=== PATIENT | female | born 1945 | race Caucasian/White ===

== ENCOUNTER → 2017-06-25 | Outpatient (CLI) | payer OTHER ==
--- NOTE | 2017-06-25 15:19 | MG ---
HISTORY: SCREENING Comparison: Previous mammogram dated 04/24/2016 FINDINGS: Bilateral CC and MLO projections of the right and left breast were obtained. Scattered fibroglandula r tissue is seen to be present. A partially calcified fibroadenoma is again identified in the upper outer aspect of the left breast. No other sign of dominant mass. No architectural distortion or suspi cious microcalcifications are seen on either side.. No skin thickening or nipple retraction is appre ciated. No pathological lymphadenopathy can be identified. Benign-appearing calcifications scattere d throughout the right and left breasts are observed. IMPRESSION: NO RADIOGRAPHIC EVIDENCE OF MALIGNANCY. ACR CATEGORY: 2 - benign findings. FOLLOW-UP EXAM 1 YEAR. Diagnostic CAD was utilized and reviewed. * 0 (ZERO) - ASSESSMENT INCOMPLETE; ADDITIONAL IMAGING IS NEEDED. * 1/1 (ONE) - NEGATIVE. * 2/II (TWO) - BENIGN FINDINGS. * 3/III (THREE) - PROBABLY BENIGN FINDING; SHORT INTERVAL FOLLOW-UP SUGGESTED. * 4/IV (FOUR) - SUSPICIOUS ABNORMALITY; BIOPSY SHOULD BE CONSIDERED. * 5/V - HIGHLY SUSPICIOUS OF MALIGNANCY; BIOPSY SHOULD BE PERFORMED. A NEGATIVE X-RAY REPORT SHOULD NOT DELAY BIOPSY IF A DOMINANT OR CLINICALLY SUSPICIOUS MASS IS PRESENT; 4 TO 8 PERCENT OF CANCERS ARE NOT IDENTIFIED BY X-RAY. A NEGA TIVE REPORT MAY REINFORCE THE CLINICAL IMPRESSION. ADENOSIS AND DENSE BREASTS MAY OBSCURE AN UNDERLYING NEOPLASM. Reported By:
== END ==
LOC: RAD 10:12
PROVIDERS: ATTEND Internal Medicine
DX: Z12.31 Encounter for screening mammogram for malignant neoplasm of breast (principal)
CPT/HCPCS: 77067

== ENCOUNTER 2018-12-09 08:52 | Observation (INO) ==
[2018-12-09] MEDS ORDERED: DILAUDID INJ IVP PRN (09:43)
[2018-12-09 12:49] VITALS: BMI 26.6
[2018-12-09 12:51] LABS: BASOPHILS # (AUTO) 0.1 X10^3/uL (0.0-0.1); BASOPHILS % (AUTO) 1.1 % (0.2-1.0); EOSINOPHILS % (AUTO) 0.6 % (0.9-2.9); HEMATOCRIT 36.5 % (36.0-47.0); HEMOGLOBIN 11.8 g/dL (12.0-16.0); LYMPHOCYTES # (AUTO) 1.1 X10^3/uL (1.3-2.9); LYMPHOCYTES % (AUTO) 21.9 % (21.0-51.0); MEAN CORPUSCULAR HEMOGLOBIN 24.8 pg (27.0-34.0); MEAN CORPUSCULAR HGB CONC 32.5 g/dL (33.0-35.0); MEAN CORPUSCULAR VOLUME 76.4 fL (80.0-100.0); MEAN PLATELET VOLUME 7.2 fL (7.4-11.0); MONOCYTES # (AUTO) 0.5 x10^3/uL (0.3-0.8); MONOCYTES % (AUTO) 9.2 % (0.0-13.0); NEUTROPHILS # (AUTO) 3.3 x10^3/uL (2.2-4.8); NEUTROPHILS % (AUTO) 67.2 % (42.0-75.0); PLATELET COUNT 329 X10^3/uL (150.0-450.0); RED BLOOD COUNT 4.77 X10^6/uL (3.5-5.4); RED CELL DISTRIBUTION WIDTH 16.2 % (11.6-16.5); WHITE BLOOD COUNT 4.9 X10^3/uL (3.6-10.0)
[2018-12-09 12:58] LABS: ALANINE AMINOTRANSFERASE 16 Units/L (12-78); ALBUMIN 4.1 g/dL (3.4-5.0); ALKALINE PHOSPHATASE 70 Units/L (46-116); ASPARTATE AMINO TRANSFERASE 18 Units/L (15-37); BLOOD UREA NITROGEN 9 mg/dL (7-18); CALCIUM 9.1 mg/dL (8.5-10.1); CARBON DIOXIDE 25.7 mmol/L (21-32); CHLORIDE 98 mmol/L (98-107); COR NA(FOR HYPERGLY) 136 mmol/L (136-145); CREATININE 0.82 mg/dL (0.55-1.02); SODIUM 135 mmol/L (136-145); TOTAL PROTEIN 8.4 g/dL (6.4-8.2); eGFR NON BLACK RACES > 60 (>60)
[2018-12-09 13:21] LABS: PLATELET MORPHOLOGY COMMENT NORMAL (NORMAL)
[2018-12-09 13:32] LABS: ERYTHROCYTE SEDIMENTATION RATE 23 MM/HOUR (0-20)
[2018-12-09] MEDS: TORADOL 15 MG VIAL IVP SCH ×3 (13:55→22:05)
[2018-12-09] MEDS: NS 1000 ML 1,000 ML IV SCH (14:48)
--- NOTE | 2018-12-09 16:22 | DR.UPDATE ---
H&P Update History and Physical Update: History and Physical reviewed and patient examined. Changes noted: Yes with the following: PRESENTED TO THE OFFICE FOR COMPLAINTS OF SEVERE LOWER BACK PAIN. SHE DESCRIBES PAIN BURNING DOWN TO BILATERAL LEGS. SHE ALSO REPORTS LOWER ABDOMINAL PAIN. PATIENT REPORTS THAT PAIN IS CONSTANT AND WORSENING. WE ADMITTED PATIENT FOR FURTHER EVALUATION AND TREATMENT OF INTRACTABLE BACK PAIN AND ABDOMINAL PAIN. ON ADMISSION, LABS WERE OBTAINED. ABNORMAL LAB VALUES INCLUDE THE FOLLOWING: HGB 11.8, SODIUM 135, GLUCOSE 131, TOTAL PROTEIN 8.4. WE WILL OBTAIN A URINALYSIS, MRI OF THE LUMBAR SPINE, AND AN ABDOMEN/PELVIS CT WITH CONTRAST. WE WILL START NORMAL SALINE AT 50 ML/HR, DILAUDID 1MG IV Q4H PRN PAIN, TORADOL 15MG IV Q6H JAD, AND WILL RESUME HER HOME MEDICATIONS. OTHERWISE, WE PLAN TO FOLLOW UP WITH AM LABS AND CONTINUE TO MONITOR. Prescription drug monitoring program results: PDMP was not reviewed
[2018-12-09] MEDS ORDERED: NS 100 ML IV 100 ML IV ONE (18:15)
[2018-12-09 20:53] LABS: BILIRUBIN,URINE NEGATIVE (NEGATIVE); BLOOD/HEMOGLOBIN,URINE 1+ (NEGATIVE); GLUCOSE, URINE NEGATIVE (NEGATIVE); KETONES,URINE NEGATIVE (NEGATIVE); LEUKOCYTE ESTERASE ,URINE 3+ (NEGATIVE); NITRITES,URINE NEGATIVE (NEGATIVE); PROTEIN,URINE NEGATIVE (NEGATIVE); UROBILINOGEN,URINE NORMAL (NORMAL)
[2018-12-09] MEDS ORDERED: PATIENT'S HOME MEDICATION PO SCH ×6 (21:00)
[2018-12-09] MEDS ORDERED: REGLAN TAB 10 MG PO SCH (21:00)
[2018-12-09] MEDS ORDERED: NORVASC TAB 10 MG PO SCH (21:00)
[2018-12-09] MEDS ORDERED: PLETAL PO SCH (21:00)
[2018-12-09] MEDS ORDERED: ZyrTEC TAB 10 MG PO SCH (21:00)
[2018-12-09] MEDS ORDERED: CRESTOR TAB 10 MG PO SCH (21:00)
[2018-12-09] MEDS ORDERED: GLUCOPHAGE PO SCH (21:00)
[2018-12-09] MEDS ORDERED: TOPROL XL PO SCH (21:00)
[2018-12-09] MEDS ORDERED: NEURONTIN CAP 300 MG PO SCH (21:00)
[2018-12-09 21:01] LABS: APPEARANCE,URINE HAZY (CLEAR); COLOR,URINE YELLOW (YELLOW)
[2018-12-09 21:02] LABS: BACTERIA,URINE 2+ /HPF (NEGATIVE); RBC,URINE 0-2 /HPF (0-3); SQUAMOUS EPITHELIAL CELL,UR RARE /HPF (NEGATIVE)
[2018-12-09] MEDS: ROCEPHIN VIAL 1 GRAM 1 G in NS 100 ML IV + SPIKE MINIBAG* 100 ML IV SCH (21:56)
[2018-12-09] MEDS: PATIENT'S HOME MEDICATION PO SCH (22:04)
[2018-12-09] MEDS: HumuLIN R SUBCUT PRN (22:16)
[2018-12-10] MEDS: HumuLIN R SUBCUT PRN (01:58)
[2018-12-10] MEDS: NS 1000 ML 1,000 ML IV SCH (02:04)
--- NOTE | 2018-12-10 05:13 | CT ---
CT abdomen and pelvis with contrast Indication: Abdominal pain Technique: Helical images through the abdomen and pelvis after IV and oral contrast per protocol. Coronal and sagittal reformats provided. Findings: Limited images through the lower chest show no acute abnormality. Coronary artery calcifications noted. Review of bone windows shows spine and pelvis DJD. Abdomen: The liver, gallbladder, spleen, atrophic pancreas and adrenal glands show no acute abnormality. The stomach and small bowel are normal. There is colonic diverticulosis without acute inflammation. No acute colonic abnormalities seen. Vascular calcifications noted. The right kidney is normal without hydroureteronephrosis. Left kidney shows interpolar cyst. Exophytic left lower pole intermediate density is indeterminate. Pelvis: The urinary bladder and rectum are normal. Uterus and adnexa show no acute abnormality. Impression: 1. No acute abnormality to explain the patient's pain 2. Indeterminate exophytic left lower pole hypodensity. Nonemergent ultrasound follow-up recommended. 3. Spine DJD, vascular plaque and other findings as above. Noninflamed colonic diverticula Reported By:
[2018-12-10 05:19] LABS: BASOPHILS % (AUTO) 1.2 % (0.2-1.0); EOSINOPHILS % (AUTO) 1.1 % (0.9-2.9); HEMATOCRIT 32.1 % (36.0-47.0); HEMOGLOBIN 10.5 g/dL (12.0-16.0); LYMPHOCYTES % (AUTO) 24.7 % (21.0-51.0); MEAN CORPUSCULAR HEMOGLOBIN 24.7 pg (27.0-34.0); MEAN CORPUSCULAR HGB CONC 32.5 g/dL (33.0-35.0); MEAN CORPUSCULAR VOLUME 75.9 fL (80.0-100.0); MEAN PLATELET VOLUME 7.3 fL (7.4-11.0); MONOCYTES # (AUTO) 0.6 x10^3/uL (0.3-0.8); MONOCYTES % (AUTO) 13.7 % (0.0-13.0); NEUTROPHILS # (AUTO) 2.4 x10^3/uL (2.2-4.8); NEUTROPHILS % (AUTO) 59.3 % (42.0-75.0); PLATELET COUNT 270 X10^3/uL (150.0-450.0); RED BLOOD COUNT 4.23 X10^6/uL (3.5-5.4); RED CELL DISTRIBUTION WIDTH 16.1 % (11.6-16.5)
[2018-12-10 05:38] LABS: ALANINE AMINOTRANSFERASE 14 Units/L (12-78); ALBUMIN 3.2 g/dL (3.4-5.0); ALKALINE PHOSPHATASE 54 Units/L (46-116); ASPARTATE AMINO TRANSFERASE 14 Units/L (15-37); BLOOD UREA NITROGEN 10 mg/dL (7-18); CALCIUM 8.1 mg/dL (8.5-10.1); CARBON DIOXIDE 25.1 mmol/L (21-32); CHLORIDE 102 mmol/L (98-107); COR CA(FOR HYPOALB) 8.7 mg/dL (8.5-10.1); CREATININE 0.62 mg/dL (0.55-1.02); SODIUM 137 mmol/L (136-145); TOTAL PROTEIN 6.9 g/dL (6.4-8.2); eGFR NON BLACK RACES > 60 (>60)
[2018-12-10 05:47] LABS: PLATELET MORPHOLOGY COMMENT NORMAL (NORMAL)
[2018-12-10] MEDS: TORADOL 15 MG VIAL IVP SCH ×2 (06:02→11:12)
[2018-12-10] MEDS ORDERED: K-RIDER 10 MEQ/NS 100 ML 10 MEQ/100 ML BAG IV PRN (06:13)
[2018-12-10] MEDS ORDERED: KLOR-CON PO PRN (06:13)
[2018-12-10] MEDS ORDERED: MICRO K EXTEN CAP 10 MEQ PO PRN (06:13)
[2018-12-10] MEDS ORDERED: K-DUR TAB 20 MEQ PO PRN (06:13)
[2018-12-10] MEDS ORDERED: POTASSIUM CHLORIDE LIQ 20 MEQ UDC PO PRN (06:13)
[2018-12-10] MEDS ORDERED: POTASSIUM CHL 40 MEQ/NS 0.45% 500 ML IV PRN (06:13)
[2018-12-10] MEDS ORDERED: POTASSIUM CHL 60 MEQ/NS 0.45% 500 ML IV PRN (06:13)
[2018-12-10] MEDS ORDERED: MAGNESIUM SULFATE 1 GRAM/100 mL PREMIX 1 GM/100 ML BAG IV PRN (06:13)
[2018-12-10] MEDS ORDERED: PriLOSEC PO SCH (09:00)
[2018-12-10] MEDS ORDERED: FOSINOPRIL PO SCH (09:00)
[2018-12-10] MEDS ORDERED: PLAVIX PO SCH (09:00)
[2018-12-10] MEDS ORDERED: SYNTHROID 100 mcg TAB PO SCH (09:00)
[2018-12-10] MEDS ORDERED: PATIENT'S HOME MEDICATION PO SCH ×8 (09:00)
[2018-12-10] MEDS ORDERED: SINGULAIR TAB 10 MG PO SCH (09:00)
[2018-12-10] MEDS: PATIENT'S HOME MEDICATION PO SCH (09:27)
[2018-12-10] MEDS: ROCEPHIN VIAL 1 GRAM 1 G in NS 100 ML IV + SPIKE MINIBAG* 100 ML IV SCH (09:30)
--- NOTE | 2018-12-10 10:02 | MRI ---
HISTORY: Back pain Study: MRI lumbar spine without contrast Comparison: None Technique: Multiplanar multi-sequence MRI of the lumbar spine was obtained. Sagittal T1, sagittal T2, and stir weighted images, axial T1, and axial T2 images were obtained. Findings: The lumbar spine demonstrates normal alignment with the expected signal characteristics of the bone marrow. However, compression deformity within the L1 vertebral body is observed with approximately 50% loss of height consistent with chronic insufficiency fracture. The conus of the cord terminates normally. T12 -- L1: Mild degenerative disc disease without central canal stenosis identified. L1 -- L2: Mild degenerative disc disease without central canal stenosis identified. L2 -- L3: Minimal degenerative disc disease without central canal stenosis identified. L3 -- L4: Mild degenerative disc disease with small broad-based disc bulge and ligamentum flavum hypertrophy producing mild central canal stenosis with encroachment of the right and left lateral recess. L4 -- L5: Moderate degenerative disc disease with broad-based disc bulge and ligamentum flavum hypertrophy producing severe central canal stenosis. In addition, a synovial cyst extending from the facet joint into the lateral recess produces severe central canal stenosis inferior to the L4-5 level posterior to the L5 vertebral body. L5 -- S1: Advanced degenerative disc disease with loss of disc height and a broad-based disc bulge producing moderate central canal stenosis at this level. In addition, severe neural foraminal compromise is observed on the right with moderate neural foraminal compromise on the left. IMPRESSION: Multilevel degenerative disc disease most significant at the L4-5 level with broad-based disc bulge and severe ligamentum flavum hypertrophy producing severe central canal stenosis. In addition, severe central canal stenosis secondary to a synovial cyst extending from the L4-5 facet joint is noted in the right paramedian location producing severe encroachment of the right lateral recess. Reported By:
[2018-12-10] MEDS ORDERED: AFLURIA II4 or FLUARIX II4 IM ONE (11:18)
[2018-12-10] MEDS ORDERED: PNEUMOVAX 23 IM ONE (11:18)
[2018-12-10 12:10] VITALS: BP 127/48
[2018-12-10] MEDS ORDERED: SNACK - Diabetic Appropriate PO SCH (20:00)
== END 2018-12-10 12:18 | disposition home or self-care (01) ==
LOC: MED/SURG
PROVIDERS: ADMIT Internal Medicine; ATTEND Internal Medicine
CPT/HCPCS: 36415; 72148; 74177; 80053; 81001; 82947; 83735; 85025; 85652; 86140; 87086; 87088; 87186; 90674; 90686; 96367; 96372; 96374; A4216; A4222; G0378; J0696; J1815; J1885; J7030; J7050; S0195